=== PATIENT | female | born 1945 | race Caucasian/White ===

== ENCOUNTER 2019-04-21 08:31 | Emergency (ER) | payer OTHER ==
[~2019-04-21] VITALS: Ht 152.4 cm; Wt 97.5 kg
[2019-04-21 08:31] VITALS: BP_SYST 159
--- NOTE | 2019-04-21 08:31 | NUR ---
ASSISTED OUT OF CAR TO WHEELCHAIR, PLACED IN WHEELCHAIR AND BROUGHT BACK TO BED #7, TRIAGED. REPORT GIVEN TO MARKO
--- NOTE | 2019-04-21 08:45 | NUR ---
PATIENT CAME IN COMPLAINING OF PAIN 10/10 IN RIGHT ARM AND BACK. PATIENT HAS HISTORY OF RA ACCORDING TO DAUGHTER. PER DAUGHTER PATIENT STARTED HAVING MEMORY LOSS ON FRIDAY. PATIENT NOT COMPLAINING OF NAUSEA OR VOMITING. PATIENT IS ALERT AND ORIENTED X4. BOTH PATIENT AND DAUGHTER BAD HISTORIANS.
--- NOTE | 2019-04-21 09:03 | NUR ---
SAVANNAH WISEMAN at bedside examining patient.
[2019-04-21] MEDS ORDERED: KETOROLAC TROMETHAMINE 30 MG VIAL IVP ONE (09:15)
[2019-04-21] MEDS ORDERED: NS 500 ML IV ONE (09:15)
--- NOTE | 2019-04-21 09:18 | NUR ---
PATIENT GETTING X RAY AT BEDSIDE.
--- NOTE | 2019-04-21 09:25 | NUR ---
# 20 gauge angiocath placed to LEFT AC. Use of asceptic technique. Opsite placed over site. Blood return noted. Blood for lab drawn from site. Flushed with 10 cc of normal saline. No evidence of infiltration noted. Patient tolerated well.
[2019-04-21 09:50] LABS: BASOPHILS % (AUTO) 0.2 % (0.0-2.0); EOSINOPHILS % (AUTO) 0.1 % (0.0-4.0); HEMATOCRIT 41.2 % (36-48); HEMOGLOBIN 14.1 g/dL (12.0-16.0); LYMPHOCYTES # (AUTO) 1.3 K/uL (1.0-5.5); LYMPHOCYTES % (AUTO) 9.3 % (20.5-51.5); MEAN CORPUSCULAR HEMOGLOBIN 31 pg (27-31); MEAN CORPUSCULAR HGB CONC 34 % (32-36); MEAN CORPUSCULAR VOLUME 91 fL (79.0-98.0); MONOCYTES # (AUTO) 0.9 K/uL (0.0-1.0); MONOCYTES % (AUTO) 6.3 % (1.7-9.3); NEUTROPHILS # (AUTO) 11.5 K/uL (1.8-7.7); NEUTROPHILS % (AUTO) 84.1 % (40.0-70.0); PLATELET COUNT (AUTO) 209 K/uL (130-430); RED BLOOD CELL COUNT(AUTO) 4.51 MIL/uL (4.2-6.2); RED CELL DISTRIBUTION WIDTH 13.8 % (9.0-15.0); WHITE BLOOD COUNT (AUTO) 13.7 K/uL (4.8-10.8)
[2019-04-21 10:06] LABS: ANION GAP 6 (5-15); CALCIUM 9.1 mg/dL (8.4-11.0); CHLORIDE 89 mmol/L (98-107); CREATININE 0.74 mg/dL (0.55-1.30); GLUCOSE 153 mg/dL (70-99); POTASSIUM 4.2 mmol/L (3.5-5.1); SODIUM SERUM 124 mmol/L (136-145); UREA NITROGEN, BLOOD 18 mg/dL (8-21)
[2019-04-21 10:11] LABS: ALANINE AMINOTRANSFERASE 30 U/L (12-78); ALBUMIN 2.8 g/dL (3.4-4.8); ASPARTATE AMINOTRANSFERASE 19 U/L (10-37); TOTAL BILIRUBIN 0.7 mg/dL (0.0-1.0)
[2019-04-21] MEDS ORDERED: MORPHINE 4 MG/ML INJ. SYRINGE IVP ONE (10:15)
[2019-04-21] MEDS ORDERED: NACL 0.9% 1,000 ML IV ONE (10:30)
--- NOTE | 2019-04-21 10:59 | NUR ---
PATIENT STATES SHE FEELS BETTER AFTER MORPHINE.
[2019-04-21 11:13] LABS: BILIRUBIN,URINE NEGATIVE (NEGATIVE); BLOOD, URINE NEGATIVE (NEGATIVE); CLARITY/URINE SL HAZY (CLEAR); COLOR,URINE YELLOW (YELLOW); GLUCOSE,URINE NEGATIVE (NEGATIVE); KETONES,URINE NEGATIVE (NEGATIVE); LEUKOCYTE ESTERASE ,URINE NEGATIVE (NEGATIVE); NITRITE, URINE NEGATIVE (NEGATIVE); PH,URINE 6.5 (5.0-8.0); PROTEIN URINE TRACE (NEGATIVE)
[2019-04-21] MEDS ORDERED: PREDNISONE 20 MG TABLET PO ONE (11:15)
[2019-04-21] MEDS ORDERED: AZITHROMYCIN 250 MG TABLET PO ONE (11:30)
[2019-04-21 11:36] VITALS: BP_SYST 148
--- NOTE | 2019-04-21 11:36 | NUR ---
Patient given written and verbal discharge instructions and verbalizes understanding. ER MD Burnett discussed with patient the results and treatment provided. Patient in stable condition. ID arm band removed. IV catheter removed intact and dressing applied, no active bleeding. Rx of Azithomycin, Tessalon Perles, Prednisone given. Patient educated on pain management and to follow up with PMD. Pain Scale 0. Opportunity for questions provided and answered. Medication side effect fact sheet provided.
== END 2019-04-21 11:36 | disposition home or self-care (01) ==
LOC: SED 08:31
DX: J40 Bronchitis, not specified as acute or chronic (principal); G89.29 Other chronic pain; M54.5 Low back pain; M06.9 Rheumatoid arthritis, unspecified; E11.9 Type 2 diabetes mellitus without complications; K21.9 Gastro-esophageal reflux disease without esophagitis; I10 Essential (primary) hypertension
CPT/HCPCS: 36415; 71045; 80053; 81003; 85025; 96374; 96375; 99284; J1885; J2270; J7030; J7040; J7512; Q0144